=== PATIENT | female | born 1950 | race African-American/Black ===

== ENCOUNTER 2016-11-15 07:22 | Day surgery (SDC) | payer OTHER ==
[2016-11-08 12:07] LABS: HEMATOCRIT 34.7 % (36.0-48.0); HEMOGLOBIN 11.2 g/dL (12.0-16.0)
[2016-11-08 12:16] LABS: ASCORBIC ACID (UR NOT ORDER) NEG (NEG); BILIRUBIN, URINE NEGATIVE (NEG); KETONE, URINE NEGATIVE (NEG); LEUKOCYTE ESTERASE(NOT OR NEG (NEG); WBC (NOT ORDERED) (RFLEX) < 1 (0-5)
[2016-11-08 12:30] LABS: ALBUMIN 3.7 G/DL (3.5-5.0); ALKALINE PHOSPHATASE 114 U/L (45-117); BUN (BLOOD UREA NITROGEN) 10 MG/DL (6-23); CALCIUM, SERUM 9.1 MG/DL (8.5-10.4); CHLORIDE, SERUM 103 MMOL/L (96-112); CO2 (CARBON DIOXIDE) 27 MMOL/L (24-34); CREATININE 0.97 MG/DL (0.55-1.02); GFR AFRICAN AMERICAN 72 ML/MIN (>=60); GFR NON AFRICAN AMERICAN 62 ML/MIN (>=60); GLOBULIN 3.6 G/DL (2.5-4.1); GLUCOSE, SERUM 150 MG/DL (60-99); SGOT(AST) 9 U/L (5-40); SGPT(ALT) 17 U/L (5-65); SODIUM, SERUM 141 MMOL/L (135-148); TOTAL BILIRUBIN 1.3 MG/DL (0-1.2); TOTAL PROTEIN 7.3 G/DL (6.0-8.5)
--- NOTE | ~2016-11-15 | OP ---
Record Of Operation [facility] [address] [place]. [address] NAME: GABRIEL PEREZ : 54 [place]US : [place] [facility] [place] [id number] AGE: 66 ADM/REG DATE : 11/15/16 MR#: [id number] REPORT SERV DATE: 11/15/16 DICTATED BY: ROBBI BENJAMIN DATE: 11/15/16 REPORT STATUS : Draft TRANSCRIBED BY: MODL DATE: 11/15/16 DATE OF PROCEDURE: 11/15/2016 PREOPERATIVE DIAGNOSIS: Left hydroureteronephrosis. POSTOPERATIVE DIAGNOSIS: Left hydroureteronephrosis probably secondary to prior endometrial cancer surgery. PROCEDURE: Cysto with left ureteroscopy, dilation of ureteral stricture, left retrograde pyelogram, left ureteral stent placement (6-Kyrgyz 26 cm Microvasive Percuflex). COMPLICATIONS: None. DRAINS: One #6-Kyrgyz 26 cm Microvasive Percuflex stent without removal suture attached. SPECIMENS: Cath urine from bladder for culture and sensitivity. Cath urine from left kidney for culture and sensitivity. IMMEDIATE POSTOP: Satisfactory. DESCRIPTION OF PROCEDURE: The patient was brought into the cysto suite, given inhalational anesthetic by endotracheal tube and placed in the lithotomy position. Perineum genitalia were prepped and draped in a sterile fashion. Video cystourethroscopy was then performed using a #22 cystoscope Foroblique lens. A cath urine for culture and sensitivity was obtained from the bladder. At this point, a left retrograde pyelogram was performed using a #8 cone-tipped ureteral catheter and this revealed a normal distal ureter down to the level of the sacroiliac joint at which time, there was a marked caliber change with marked dilation of the more proximal ureter. The pyelocalyceal system was not filled during this study. At this point, a 0.35 angled Glidewire was passed through a Pollack catheter into the left ureteral orifice and up into what was felt to be the pyelocalyceal system. The Pollack catheter was then easily advanced over the wire beyond the point of perceived obstruction on the retrograde referenced above and passed up to the pyelocalyceal system. The wire was removed and a brisk hydronephrotic drip of clear urine effluxed out of the catheter and specimen was obtained for culture and sensitivity. Dilute contrast was then injected in a retrograde fashion to opacify the markedly dilated pyelocalyceal system. A 0.35 sensor wire was passed through the Pollack catheter and when seen in the pyelocalyceal system, the catheter was removed leaving the wire in place. Following this, a 10-Kyrgyz dual-lumen catheter was passed into the ureter proximal to the point of obstruction giving some degree of dilation and also allowed access for a second wire. The first wire was placed aside and used as a "safety wire" and preserved. Following this, a short rigid ureteroscope was passed per urethra and into the ureter along with the 2 previously placed wires. The scope was carefully passed up to the level of obstruction and then passed through this stricture at which point a marked dilation of the ureter was noted. However there were no mucosal abnormalities or anything to suggest transitional cell neoplasm or urothelial disease. Contrast was then injected through the scope. There was no extravasation noted and the scope was removed. The second wire was removed leaving the Record Of Operation [address] [place]. [address] NAME: GABRIEL PEREZ : 54 [place]US : [place] [facility] [place] PAT#: [id number] AGE: 66 ADM/REG DATE : 11/15/16 MR#: [id number] REPORT SERV DATE: 11/15/16 DICTATED BY: ROBBI BENJAMIN DATE: 11/15/16 REPORT STATUS : Draft TRANSCRIBED BY: GRSI DATE: 11/15/16 "s[address] wire in [address]". A 22-Kyrgyz cystoscope was passed over the wire and a 6-Kyrgyz 26 cm Microvasive Percuflex stent without the removal suture was passed up into the ureter over the wire and up into the pyelocalyceal system. The wire was removed. The stent assumed normal configuration both proximally and distally as confirmed and documented on fluoroscopy. Also noted was brisk efflux of clear to pink urine through the side holes of the stent also confirming proximal placement to the obstruction. At this point, the bladder was drained, cystoscope removed. The patient was awakened and sent to recovery in satisfactory condition. /GRIS Robbi Benjamin M.D. / [id number] CC: Charley Alegria M.D.
[~2016-11-15 07:22] MED LIST: ADVIL PO; ALEVE220 MG PO; ASAB PO; AVAP150 PO; BL CHROMIUM200 MCG PO; BYETTA10 SC; CRESTOR10 PO; FISH-EPA1000 MG PO; FLONASE NAS; GLUCOPHAGE1000 MG PO; HALF81 PO; JANUMET1 TA1 PO; JANUMET1 TAB PO; JANUVIA100 MG PO; LEVOTHYROXIN175 MCG PO; MULTIPLE VIT PO; PCET PO; SPIRO25 PO; SPIRO50 PO; SYN88 PO; VITAMIN B-121000 MC1 SL; VITAMIN C100 MG PO; VITAMIN D1000 UNI1 PO; VITE PO; ZYRTEC ALLGY10 MG PO
[2016-11-15 07:52] LABS: BASOPHILS 1.1 %; BASOPHILS ABSOLUTE 0.08 10/3/uL (0.0-0.16); EOSINOPHILS 4.1 %; HEMATOCRIT 34.3 % (36.0-48.0); HEMOGLOBIN 11.1 g/dL (12.0-16.0); IMMATURE GRANULOCYTES 0.3 %; IMMATURE GRANULOCYTES ABSOLUTE 0.02 10/3/uL (0.0-0.11); LYMPHOCYTES 32.2 %; LYMPHOCYTES ABSOLUTE 2.35 10/3/uL (0.67-4.30); MEAN CORPUS HGB CONC 32.4 g/dL (32.0-36.0); MEAN CORPUSCULAR HEMOGLOB 27.3 pg (26.0-34.0); MEAN CORPUSCULAR VOLUME 84.3 fL (80-100); MEAN PLATELET VOLUME 9.5 fL (9.2-13.0); MONOCYTES 6.9 %; NEUTROPHILS 55.4 %; NEUTROPHILS ABSOLUTE 4.04 10/3/uL (2.02-8.40); PLATELET COUNT 394 10/3/uL (150-400); RBC DISTRIBUTION WIDTH 14.1 % (12.0-16.0); RED CELL COUNT 4.07 10/6/uL (4.0-5.6); WHITE BLOOD CELLS 7.3 10/3/uL (4.5-10.5)
[2016-11-15 07:55] LABS: MANUAL DIFF NO %
== END 2016-11-15 13:48 | disposition home or self-care (01) ==
LOC: SDC 07:22
PROVIDERS: Urology
PROC: 0T778DZ Dilation of Left Ureter with Intraluminal Device, Via Natural or Artificial Opening Endoscopic (ICD-10-PCS; principal; 2016-11-15 08:45)
DX: N13.30 Unspecified hydronephrosis (principal); N35.9 Urethral stricture, unspecified; I10 Essential (primary) hypertension; E11.9 Type 2 diabetes mellitus without complications; E66.9 Obesity, unspecified; E78.5 Hyperlipidemia, unspecified; M19.90 Unspecified osteoarthritis, unspecified site; G89.29 Other chronic pain; M54.9 Dorsalgia, unspecified; Z90.710 Acquired absence of both cervix and uterus; E03.9 Hypothyroidism, unspecified; Z98.51 Tubal ligation status; Z90.89 Acquired absence of other organs; Z98.890 Other specified postprocedural states; Z96.651 Presence of right artificial knee joint
CPT/HCPCS: 71020; 74420; 80053; 81001; 82962; 85014; 85018; 85025; 87086; 93005; A9270-GY; C1758; C1769; C2617; J2250; J2405; J2710; J3010